=== PATIENT | female | born 1965 | race Two or more races ===

== ENCOUNTER 2023-12-03 17:47 | Inpatient (IN) | payer SELFPAY ==
[2023-12-03 18:31] VITALS: BMI 31.1
[2023-12-03] MEDS ORDERED: Communication Order-Pharmacy FS PRN (19:37)
[2023-12-03] MEDS ORDERED: Ondansetron PF 4 MG/2 ML Vial IVP PRN (19:40)
[2023-12-03] MEDS ORDERED: Ondansetron ODT 4 MG TAB PO PRN (19:40)
[2023-12-03] MEDS: Magnesium Sulfate/D5W 1 GM in Premix 1 BAG IVPB SCH (21:25)
[2023-12-03] MEDS: Potassium Chloride 20 MEQ TAB PO SCH (21:27)
[2023-12-03] MEDS: Ferrous Sulfate 325 MG TAB PO SCH (21:27)
[2023-12-03] MEDS: Sodium Chloride 0.9% 1,000 ML IV SCH (21:29)
[2023-12-04 05:18] LABS: #Basophils 0.07 10x3/uL (0.0-0.2); #Eosinophils 0.48 10x3/uL (0.0-0.5); #Monocytes 1.27 10x3/uL (0.0-1.1); #Neutrophils 11.47 10x3/uL (1.5-8.4); %Basophils 0.5 % (0.0-2.0); %Eosinophils 3.3 % (0.0-6.0); %Lymphocytes 8.3 % (18.0-47.0); %Monocytes 8.7 % (0.0-10.0); %Neutrophils 78.9 % (40.0-75.0); Hematocrit 27.4 % (34.9-44.5); Hemoglobin 7.8 g/dL (12.0-15.5); Mean Corpuscular HGB CONC 28.5 g/dL (32.0-36.0); Mean Corpuscular Hemoglobin 19.2 pg (27.0-33.0); Mean Corpuscular Volume 67.3 fL (81.6-98.3); Platelet Count 320 10x3/uL (150-450); RBC Distribution Width 19.9 % (11.5-14.5); Red Blood Cell (RBC) Count 4.07 10x6/uL (3.90-5.03); White Blood Cell (WBC) Count 14.5 10x3/uL (3.5-10.5)
[2023-12-04 05:19] LABS: Anion Gap 11 mmol/L (10-20); BUN (Urea Nitrogen) 9 mg/dL (9.8-20.1); Calc. Creatinine Clearance 96 mL/min (70-130); Calcium 8.4 mg/dL (7.8-10.44); Carbon Dioxide 24 mmol/L (22-29); Chloride 106 mmol/L (98-107); Estimated GFR 88; Glucose 126 mg/dL (70-105); Magnesium 2.2 mg/dL (1.6-2.6); Potassium 4.3 mmol/L (3.5-5.1); Sodium 137 mmol/L (136-145)
[2023-12-04] MEDS: metFORMIN 500 MG TAB PO SCH (09:03)
[2023-12-04] MEDS: Folic Acid 1 MG TAB PO SCH (09:03)
[2023-12-04] MEDS: Multivitamin W/ Minerals 1 TAB PO SCH (09:03)
[2023-12-04] MEDS ORDERED: Dextrose 5% in Water 1,000 ML IV PRN (10:20)
[2023-12-04] MEDS ORDERED: Dextrose 50% Abboject 50 ML SYRINGE SLOW IVP PRN (10:20)
[2023-12-04] MEDS ORDERED: Glucagon 1 MG/ML KIT IM PRN (10:20)
[2023-12-04] MEDS: cefTRIAXone\\ROCEPHIN 2 GM in Sodium Chloride 0.9% 100 ML IVPB SCH (13:25)
[2023-12-04] MEDS: Acetaminophen 325 MG TAB PO PRN (20:21)
[2023-12-05 05:30] LABS: #Basophils 0.08 10x3/uL (0.0-0.2); #Eosinophils 0.56 10x3/uL (0.0-0.5); #Monocytes 1.04 10x3/uL (0.0-1.1); #Neutrophils 4.69 10x3/uL (1.5-8.4); %Eosinophils 6.7 % (0.0-6.0); %Lymphocytes 22.9 % (18.0-47.0); %Monocytes 12.4 % (0.0-10.0); %Neutrophils 55.7 % (40.0-75.0); Hematocrit 27.3 % (34.9-44.5); Hemoglobin 7.5 g/dL (12.0-15.5); Mean Corpuscular HGB CONC 27.5 g/dL (32.0-36.0); Mean Corpuscular Hemoglobin 18.8 pg (27.0-33.0); Mean Corpuscular Volume 68.4 fL (81.6-98.3); Mean Platelet Volume 9.3 fL (7.4-10.4); Platelet Count 314 10x3/uL (150-450); RBC Distribution Width 19.8 % (11.5-14.5); Red Blood Cell (RBC) Count 3.99 10x6/uL (3.90-5.03); White Blood Cell (WBC) Count 8.4 10x3/uL (3.5-10.5)
[2023-12-05 05:50] LABS: Anion Gap 12 mmol/L (10-20); BUN (Urea Nitrogen) 8 mg/dL (9.8-20.1); Calc. Creatinine Clearance 98 mL/min (70-130); Calcium 8.4 mg/dL (7.8-10.44); Carbon Dioxide 24 mmol/L (22-29); Chloride 109 mmol/L (98-107); Estimated GFR 91; Glucose 140 mg/dL (70-105); Magnesium 4.3 mg/dL (1.6-2.6); Potassium 3.8 mmol/L (3.5-5.1); Sodium 141 mmol/L (136-145)
[2023-12-05] MEDS: Lactated Ringer's 1,000 ML IV SCH (08:24)
[2023-12-05] MEDS: Pantoprazole DR 40 MG TAB PO SCH (08:24)
[2023-12-05] MEDS ORDERED: Vancomycin 1.25 GM in Sodium Chloride 0.9% 250 ML 300 ML IVPB SCH (09:00)
[2023-12-05] MEDS ORDERED: Magnesium Oxide 250 MG TAB PO SCH (09:00)
[2023-12-05] MEDS: VANCOMYCIN 1.75 GM/350 ML BAG 1.75 GM in Premix 1 BAG IVPB SCH (09:05)
[2023-12-05] MEDS: Cefepime 1 GM in Sodium Chloride 0.9% 100 ML IVPB SCH (09:24)
[2023-12-05 13:55] LABS: Magnesium 1.9 mg/dL (1.6-2.6)
[2023-12-05] MEDS: Vancomycin 1 GM in Sodium Chloride 0.9% 250 ML 250 ML IVPB SCH ×2 (21:00→23:34)
[2023-12-06] MEDS: Cefepime 1 GM in Sodium Chloride 0.9% 100 ML IVPB SCH (02:53)
[2023-12-06 06:15] LABS: #Basophils 0.09 10x3/uL (0.0-0.2); #Monocytes 0.52 10x3/uL (0.0-1.1); %Basophils 1.2 % (0.0-2.0); %Eosinophils 6.7 % (0.0-6.0); %Lymphocytes 23.1 % (18.0-47.0); %Neutrophils 60.1 % (40.0-75.0); Hematocrit 27.2 % (34.9-44.5); Hemoglobin 7.7 g/dL (12.0-15.5); Mean Corpuscular HGB CONC 28.3 g/dL (32.0-36.0); Mean Corpuscular Hemoglobin 19.1 pg (27.0-33.0); Mean Corpuscular Volume 67.3 fL (81.6-98.3); Platelet Count 357 10x3/uL (150-450); Red Blood Cell (RBC) Count 4.04 10x6/uL (3.90-5.03); White Blood Cell (WBC) Count 7.5 10x3/uL (3.5-10.5)
[2023-12-06 06:26] LABS: Anion Gap 15 mmol/L (10-20); BUN (Urea Nitrogen) 6 mg/dL (9.8-20.1); Calc. Creatinine Clearance 107 mL/min (70-130); Calcium 8.7 mg/dL (7.8-10.44); Carbon Dioxide 23 mmol/L (22-29); Chloride 109 mmol/L (98-107); Estimated GFR 100; Glucose 128 mg/dL (70-105); Potassium 4.1 mmol/L (3.5-5.1); Sodium 143 mmol/L (136-145)
[2023-12-06 06:30] LABS: Vancomycin, Random 14.8 ug/mL (See Comment)
[2023-12-06] MEDS: Ferrous Sulfate 325 MG TAB PO SCH (08:56)
[2023-12-06] MEDS: Cipro 250 MG TAB PO SCH (10:53)
[2023-12-06] MEDS: FLU (Fluarix Triv) TS24-25(6MOS UP)/PF 45 MCG/0.5 ML Syringe IM ONE (12:55)
[2023-12-06 16:52] VITALS: BP 131/72; TEMP 98
[2023-12-06] MEDS ORDERED: Cipro 250 MG TAB PO SCH (20:00)
[2023-12-06] MEDS ORDERED: Ciprofloxacin 500 MG TAB PO SCH (20:00)
== END 2023-12-06 16:51 | disposition short-term general hospital (02) | DRG 872 ==
LOC: CSHTELE 18:12
PROVIDERS: ADMIT Internal Medicine; ATTEND Family Medicine
PROC: 30233N1 Transfusion of Nonautologous Red Blood Cells into Peripheral Vein, Percutaneous Approach (ICD-10-PCS; principal; 2023-12-03)
PROC: 3E03329 Introduction of Other Anti-infective into Peripheral Vein, Percutaneous Approach (ICD-10-PCS; 2023-12-04)
DX: A41.9 Sepsis, unspecified organism (principal); N39.0 Urinary tract infection, site not specified; E87.1 Hypo-osmolality and hyponatremia; N95.0 Postmenopausal bleeding; D50.9 Iron deficiency anemia, unspecified; E11.9 Type 2 diabetes mellitus without complications; E87.6 Hypokalemia; Z88.2 Allergy status to sulfonamides; Z88.1 Allergy status to other antibiotic agents; Z87.891 Personal history of nicotine dependence; Z98.890 Other specified postprocedural states; E83.41 Hypermagnesemia; N88.8 Other specified noninflammatory disorders of cervix uteri
CPT/HCPCS: 36415; 36416; 36430; 74176; 76856; 80048; 80202; 83735; 85025; 85046; 86850; 86900; 86901; 86922; 87040; 93976; J0692; J0696; J3370; J3475; J7030; J7050; J7120; P9016